=== PATIENT | male | born 1950 | race Caucasian/White ===

== ENCOUNTER 2017-05-29 07:53 | Observation (INO) | payer BC ==
[2017-05-29 08:30] LABS: PTT 31.2 SEC (22.9-36.1); Prothrombin Time 13.6 SEC (12.0-14.7)
[2017-05-29 08:38] LABS: Hematocrit 45.7 % (42.0-52.0); Mean Platelet Volume 8.3 fL (7.4-10.4); Neutrophil 58 % (42-75); Red Blood Cell (RBC) Count 4.93 mill/uL (4.70-6.10); White Blood Cell (WBC) Count 5.5 thou/uL (4.8-10.8)
[2017-05-29 08:39] LABS: ALT (SGPT) 25 U/L (8-55); AST (SGOT) 19 U/L (5-34); Alkaline Phosphatase 90 U/L (40-150); Anion Gap 15 mmol/L (10-20); BUN (Urea Nitrogen) 18 mg/dL (8.4-25.7); Bilirubin, Total 0.5 mg/dL (0.2-1.2); CK (CPK) 92 U/L (30-200); Calc. Creatinine Clearance 0 mL/min (70-130); Calcium 9.7 mg/dL (7.8-10.44); Carbon Dioxide 28 mmol/L (23-31); Chloride 103 mmol/L (98-107); Estimated GFR-MDRD 47; Globulin 2.6 g/dL (2.4-3.5); Protein, Total 6.8 g/dL (5.8-8.1); Troponin I 0.023 ng/mL (< 0.028)
--- NOTE | 2017-05-29 08:48 | RAD ---
PORTABLE CHEST 1 VIEW: Date: 05/29/17 Time: 0835 hours HISTORY: Syncope. FINDINGS: Comparison made with exam of 11/27/15. The heart size is normal. Left-sided pacemaker device remains in place. The lungs are well expanded w ithout focal areas of consolidation, pneumothorax, or pleural effusions. IMPRESSION: No radiographic evidence of acute cardiopulmonary process. POS: H
[2017-05-29] MEDS ORDERED: Ondansetron HCl/PF 4 MG/2 ML Vial IVP PRN ×2 (12:22→12:54)
[2017-05-29] MEDS ORDERED: Ondansetron ODT 4 MG TAB SL PRN (12:22)
[2017-05-29] MEDS ORDERED: Acetaminophen 325 MG TAB PO PRN ×2 (12:22→12:54)
[2017-05-29 12:29] VITALS: BMI 25.2
[2017-05-29] MEDS ORDERED: Sodium Chloride 0.9% 1,000 ML IV SCH (12:30)
[2017-05-29] MEDS ORDERED: Mag-Al 1200 mg/1200 mg/30 ML UDCUP PO PRN (12:54)
[2017-05-29] MEDS ORDERED: HYDROcodone/Acetaminophen 5/325 mg Tablet PO PRN (12:54)
[2017-05-29] MEDS ORDERED: Loperamide HCl 2 MG CAP PO PRN (12:54)
[2017-05-29] MEDS ORDERED: hydrALAZINE 20 MG/ML VIAL SLOW IVP PRN (12:54)
[2017-05-29] MEDS ORDERED: Milk Of Magnesia 30 ML UDCUP PO PRN (12:54)
[2017-05-29] MEDS ORDERED: Eucerin (Mineral Oil/Petrolatum,White) 30 gm Jar TOP PRN (12:54)
[2017-05-29] MEDS ORDERED: Chloraseptic Spray 180 ml Bottle PO PRN (12:54)
[2017-05-29] MEDS ORDERED: Sodium Chloride 0.65% Nasal 44 ML BOT EA NARE PRN (12:54)
[2017-05-29] MEDS ORDERED: Nitroglycerin 0.4 MG TAB (25 Tab Bottle) SL PRN (12:54)
[2017-05-29] MEDS ORDERED: Artificial Tears 18 DROP/0.9 ML EA EYE PRN (12:54)
[2017-05-29] MEDS ORDERED: Senokot 8.6 MG TAB PO PRN (12:54)
[2017-05-29] MEDS ORDERED: Zolpidem Tartrate 5 MG TAB PO PRN (12:54)
[2017-05-29] MEDS ORDERED: Loratadine 10 MG TAB PO PRN (12:54)
[2017-05-29] MEDS ORDERED: Ondansetron ODT 4 MG TAB PO PRN (12:54)
[2017-05-29] MEDS ORDERED: Diabetic Tussin 200 MG/10 ML UDCUP PO PRN (12:54)
[2017-05-29] MEDS ORDERED: Indomethacin 25 mg Capsule PO PRN (12:55)
--- NOTE | 2017-05-29 14:03 | HP ---
PRIMARY CARE PHYSICIAN: Dr. Derick Camejo. REASON FOR ADMISSION: Transfer from [facility] for dizziness. HISTORY OF PRESENT ILLNESS: A 66-year-old male with a history of hypertension, dyslipidemia, as well as history of sick sinus syndrome, required pacemaker, who came to emergency room for evaluation of dizziness. Initially, patient went to [facility]. Patient repo rts that he woke up around 4:00 a.m. this morning and he was not feeling good. He best described his symptoms as dizziness and lightheadedness. His symptoms remained persistent for a couple of hours. He was not feeling any tinnitus, nausea, or vertigo. He was not having any chest pain, palpitation, shortness of breath. Patient tried to keep himself on the bed most of the period, and that is why balaji moore went to [facility] Room. Patient reports that he had exactly similar symptoms about a year ago even after pacemaker, but he is not sure whether his pacemaker was interrogated or not. Today, in the emergency room, his electroca rdiogram was showing pacemaker rhythm. Patient denies any melena, epigastric pain, and hematochezia. He denies any relation of dizziness with postural change or any activity. He denies any fever or c hills. He denies any nausea, vomiting, diarrhea. He denies any urinary tract infection symptoms. REVIEW OF SYSTEMS: The following complete review of systems was negative, unless otherwise mentioned in the HPI or below: Constitutional: Weight loss or gain, ability to conduct usual activities. Sk in: Rash, itching. Eyes: Double vision, pain. ENT/Mouth: Nose bleeding, neck stiffness, pain, te nderness. Cardiovascular: Palpitations, dyspnea on exertion, orthopnea. Respiratory: Shortness of breath, wheezing, cough, hemoptysis, fever or night sweats. Gastrointestinal: Poor appetite, abdom inal pain, heartburn, nausea, vomiting, constipation, or diarrhea. Genitourinary: Urgency, frequenc y, dysuria, nocturia. Musculoskeletal: Pain, swelling. Neurologic/Psychiatric: Anxiety, depressio n. Allergy/Immunologic: Skin rash, bleeding tendency. Please see my HPI for pertinent positives an d negative. All other review of system reviewed and negative except as mentioned in the HPI. PAST MEDICAL HISTORY: Hypertension; dyslipidemia; gout; sick sinus syndrome, required pacemaker; car otid stenosis, required right carotid endarterectomy. PAST SURGICAL HISTORY: Right leg surgery, tonsillectomy, right carotid endarterectomy, pacemaker jose cement. PAST PSYCHIATRIC HISTORY: Reviewed and negative. SOCIAL HISTORY: Patient is and lives at home with his . No history of tobacco, alcohol, or illicit drug abuse. FAMILY HISTORY: No strong family history of premature coronary artery disease, stroke, or cancer. O nly his father had heart disease, but that was also in old age. ALLERGIES: PENICILLIN. CURRENT HOME MEDICATIONS: Allopurinol 100 mg p.o. b.i.d., vitamin C 500 mg p.o. daily, aspirin 81 mg p.o. at bedtime, Lipitor 20 mg p.o. at bedtime, vitamin D3 2000 units p.o. at bedtime, colchicine 0. 6 mg p.o. daily, indomethacin 50 mg q.6 hourly p.r.n., probiotic 1 capsule p.o. at bedtime, lisinopri l 10 mg p.o. daily, multivitamin 1 tablet p.o. daily, prednisone 40 mg p.o. p.r.n. for gout attack, C oenzyme Q10 100 mg p.o. daily. EMERGENCY ROOM COURSE: Patient is given IV fluids 500 mL. PHYSICAL EXAMINATION: VITAL SIGNS: On arrival to the emergency room, blood pressure 155/65, pulse 85, respiratory rate 14, temperature 98.4, saturation 97% on room air, weight 86.1 kilograms. GENERAL: Patient is currently alert, awake, in no obvious acute distress. HEENT: Normocephalic, atraumatic. Eyes: Pupils round and reactive to light. Extraocular muscles i ntact. ENT: Oropharynx within normal limits. Moist mucous membranes. No oral lesions. No pharyngeal eryt partha, no exudates. NECK: Supple, no JVD, no thyromegaly, no carotid bruit, no jugular venous distention. LUNGS: Clear to auscultation without any rhonchi or rales. CARDIAC: S1, S2 regular. No murmur, no gallop, no rub. ABDOMEN: Soft, bowel sounds present, nontender, nondistended. No organomegaly, no mass, no suprapub ic tenderness. BACK EXAMINATION: Unremarkable, no CVA tenderness. EXTREMITIES: Upper extremities, passive movement of all joints are normal. Lower extremities, no ed miguel. Good peripheral pulsation. SKIN: No skin rash. HEMATOLOGICAL SYSTEM: No lymphadenopathy. PSYCHIATRIC: Normal affect. NEUROLOGIC: The patient is moving all 4 limbs. Cranial nerves II-XII intact. Motor and sensation w ithin normal limits, plantar bilateral flexor. Reflexes symmetrical. SIGNIFICANT LABORATORY DATA: EKG showing pacemaker rhythm. Chest x-ray, based on my review, no acut e cardiopulmonary process. CBC: WBC 5.5, hemoglobin 15.1, platelets 172. INR 1.0, D-dimer 0.28. B MP: Sodium 142, potassium 4.4, chloride 103, carbon dioxide 28, BUN 18, creatinine 1.49, glucose 108 , calcium 9.7. LFT: AST 19, ALT 25, alkaline phosphatase 90, albumin 4.2, CK 92, CK-MB 1.3, troponi n I 0.023, BNP 23.1. ASSESSMENT AND PLAN: 1. Dizziness. At this point, etiology uncertain. I am suspecting orthostatic hypotension given the patient's history of hypertension and he is taking his blood pressure medication. We will check ort hostatic vitals and rule out that possibility. Another possibility is pacemaker dysfunction. We mary grace l consult [employer] for pacemaker interrogation. If pacemaker interrogation has any problem, then we will consider Cardiology evaluation. This patient does not have any thromboembolic disorder and his D-dimer is negative, so less likely to be any thromboembolic disorder when his hemoglobin is good. He does not have any ear symptoms. He does not have any position-related symptoms. We will monitor on 24 hours on telemetry floor, and if nothing found on investigation then we will consider dischargi ng him home tomorrow. 2. Gout. The patient is taking colchicine 0.6 mg p.o. daily. Patient is taking indomethacin and pr ednisone only p.r.n. basis. Currently, the patient is stable without any gout attack. We will yoli nue allopurinol 100 mg twice daily. 3. Dyslipidemia. Continue Lipitor 20 mg p.o. at bedtime. 4. Hypertension. We will continue lisinopril 10 mg p.o. daily and we will rule out orthostatic hypo tension. 5. History of sick sinus syndrome with pacemaker. We will interrogate pacemaker. 6. Chronic kidney disease, stage 3. We will monitor renal function. 7. Deep venous thrombosis prophylaxis not needed because we are expecting discharge in 24 hours. 8. Gastrointestinal prophylaxis, Pepcid 20 mg p.o. b.i.d. 9. Code status: The patient is FULL CODE. The patient's is surrogate decision maker. Disposition plan based on clinical course. We are expecting patient's stay in the hospital, 24 hours .
[2017-05-29] MEDS: Famotidine 20 MG TAB PO SCH (19:50)
[2017-05-29] MEDS: Allopurinol 100 MG TAB PO SCH (19:50)
[2017-05-29] MEDS ORDERED: Lactinex Tablet PO SCH (21:00)
[2017-05-29] MEDS ORDERED: Atorvastatin Calcium 10 MG TAB PO SCH ×2 (21:00)
[2017-05-30] MEDS ORDERED: Lisinopril 10 MG TAB PO SCH (09:00)
[2017-05-30] MEDS ORDERED: Multivitamin W/ Minerals 1 TAB PO SCH (09:00)
[2017-05-30] MEDS ORDERED: Ascorbic Acid 500 mg Chewable Tablet PO SCH (09:00)
[2017-05-30] MEDS ORDERED: Allopurinol 100 MG TAB PO SCH (09:00)
[2017-05-30] MEDS ORDERED: Ubidecarenone 50 MG CAP PO SCH (09:00)
[2017-05-30] MEDS ORDERED: Colchicine 0.6 MG TAB PO SCH (09:00)
--- NOTE | 2017-05-30 09:33 | DIS ---
DATE OF ADMISSION: 05/29/2017 DATE OF DISCHARGE: 05/30/2017 PRIMARY CARE PHYSICIAN: Sven Duran D.O. DISCHARGE DISPOSITION: Home. PRIMARY DISCHARGE DIAGNOSIS: Dizziness nonspecific, ruled out cardiac etiology. SECONDARY DISCHARGE DIAGNOSES: Hypertension, history of sick sinus syndrome required pacemaker, gout , dyslipidemia, chronic kidney disease stage 3. PRIMARY PROCEDURE/OPERATION: None. RADIOLOGICAL INVESTIGATION: Chest x-ray normal. SIGNIFICANT LABORATORY DATA: WBC 5.5, hemoglobin 15.1, platelets 172, INR 1.0, D-dimer 0.28, creatin ine 1.49. Electrolytes normal. LFTs normal. Cardiac enzymes negative. BMP normal. DISCHARGE MEDICATIONS: The patient will continue all his previous medications; allopurinol 100 mg p. o. b.i.d., vitamin C 500 mg p.o. daily, aspirin 81 mg p.o. at bedtime, Lipitor 20 mg p.o. at bedtime, vitamin D3 2000 units p.o. at bedtime, colchicine 0.6 mg p.o. daily, indomethacin 50 mg q.6 hourly p .r.n., Probiotic 1 capsule p.o. at bedtime, lisinopril 10 mg p.o. daily, multivitamin 1 tablet p.o. d aily, prednisolone 40 mg p.o. daily p.r.n. for gout attack, Coenzyme Q10 100 mg p.o. daily. CONTRAINDICATIONS: None. CODE STATUS: FULL CODE. INPATIENT CONSULTANTS: None. ALLERGIES: PENICILLIN. TEST RESULTS PENDING ON DISCHARGE: None. DISCHARGE PLAN: Post hospital, patient is advised to follow up with primary care physician. HOSPITAL COURSE: A 66-year-old male with the above mentioned medical problems who was initially eval uated at [facility] Emergency Room for dizziness. Patient's description of dizziness was nonspecific. ER physician was worried about cardiac etiology and that is why this patient was sent t o our hospital for further evaluation and treatment. His routine blood tests including CBC, BMP, D-d kelsey, electrolytes, cardiac enzyme and everything was normal. His EKG was also showing pacemaker rhy thm. We did pacemaker interrogation and pacemaker interrogation report was normal. He remained anot her 24 hours in the hospital and telemetry remained unremarkable. He did not have any further dizzin ess. We ruled out orthostatic hypotension as well. PHYSICAL EXAMINATION: GENERAL: The patient is seen and examined at bedside today. VITAL SIGNS: Currently, temperature 98.3, pulse 65, respiratory rate 16, saturation 98%, blood press ure 122/75, and weight 191 pounds. GENERAL: The patient is currently alert, oriented, no acute distress. HEAD: Normocephalic, atraumatic. EYES: Pupils round, reactive to light. Extraocular muscle intact. ENT: Oropharynx within normal limits. LUNGS: Clear to auscultation without any rhonchi or rales. CARDIAC: S1, S2 regular without any murmur. ABDOMEN: Soft and benign. EXTREMITIES: No edema. NEUROLOGIC: Nonfocal examination. Review of systems reviewed with the patient and negative. Patient is medically stable for discharge today. The patient is given instruction to monitor blood pressure at home and keep diary of blood pr essure and see primary care physician in 1 week if any adjustment of blood pressure medication needed .
[2017-05-30] MEDS: Famotidine 20 MG TAB PO SCH (11:39)
[2017-05-30] MEDS: Allopurinol 100 MG TAB PO SCH (11:39)
--- NOTE | 2017-05-30 14:07 | ULT ---
ULTRASOUND CAROTID DOPPLER STANDARD: Date: 05/30/17 HISTORY: TIA. Dizziness. History of carotid stenosis. COMPARISON: None. TECHNIQUE: Real-time Dominguez scale, color Doppler, and spectral analysis of the extracranial carotid arteries and v ertebral arteries. FINDINGS: There is moderate plaque of the internal carotid arteries bilaterally and carotid bulbs. Antegrade fl ow to both vertebral arteries. No hemodynamically significant stenosis within the internal carotid ar teries. Mild visible wall thickening of left common carotid artery. IMPRESSION: No hemodynamically significant stenosis. POS: TPC
[2017-05-30 15:49] VITALS: TEMP 98.9
[2017-05-30 16:54] VITALS: BP 152/81
== END 2017-05-30 17:38 | disposition home or self-care (01) ==
LOC: SCSER 07:53 → 2SW 09:19
PROVIDERS: ADMIT Internal Medicine; ATTEND Internal Medicine
DX: R42 Dizziness and giddiness (principal); E78.5 Hyperlipidemia, unspecified; I49.5 Sick sinus syndrome; M10.9 Gout, unspecified; I12.9 Hypertensive chronic kidney disease with stage 1 through stage 4 chronic kidney disease, or unspecified chronic kidney disease; N18.3 Chronic kidney disease, stage 3 (moderate); Z88.0 Allergy status to penicillin; Z79.82 Long term (current) use of aspirin; Z79.899 Other long term (current) drug therapy; Z90.89 Acquired absence of other organs; Z95.0 Presence of cardiac pacemaker; Z98.890 Other specified postprocedural states; Z86.79 Personal history of other diseases of the circulatory system
CPT/HCPCS: 71010; 80053; 82550; 82553; 83880; 84484; 85025; 85379; 85610; 85730; 93005; 93880; 96360; G0378